=== PATIENT | female | born 1965 | race Hispanic/Latino ===

== ENCOUNTER 2020-05-01 08:06 | Day surgery (SDC) | payer OTHER ==
--- NOTE | 2020-04-30 17:48 | NUR ---
PER PT, STATES SHE WAS INSTRUCTED BY DR. CERON'S OFFICE TO STOP WARFARIN 5 DAYS PRIOR. PT STOPPED WARFARIN 04/27/2020. PT WAS INSTRUCTED TO CONTINUE LOVENOX INJECTIONS BID DAILY SCHEDULED THEN MONDAY 04/30 AND 05/01 ONCE DAILY IN AM PRIOR TO PROCEDURE. PT INSTRUCTED TO BRING INSTRUCTIONS FORM FROM GI OFFICE DAY OF PROCEDURE. UNABLE TO CLARIFY ORDERS WITH DR. CERON'S OFFICE, PRE-OP AFTER 5 PM, OFFICE CLOSED.
[~2020-05-01] VITALS: Ht 162.6 cm; Wt 83.2 kg
[~2020-05-01 08:06] MED LIST: ATOR40TA71 PO; ENOX80DI8 SQ; FLUO40CA49 PO; LEVO25TA54 PO; LOSA50TA64 PO; METF-445 PO; SODIUM CHLORIDE 0.9% 1000ML 1,000 ML IV ONE
[2020-05-01 08:30] VITALS: BP 134/70
[2020-05-01 09:16] LABS: INR 1.25 (0.85-1.15); PROTHROMBIN TIME 13.4 SEC (9.6-11.6)
[2020-05-01] MEDS ORDERED: WARF6TAB49 PO (09:34)
[2020-05-01] MEDS ORDERED: MIDAZOLAM HCL 1 MG/ML 2ML VIAL ONE (10:34)
[2020-05-01] MEDS ORDERED: PROPOFOL 10 MG/ML 20ML VIAL IV ONE (10:34)
[2020-05-01 10:42] VITALS: BP 120/68
[2020-05-01 10:47] VITALS: BP 124/62
[2020-05-01 10:54] VITALS: BP 124/75
[2020-05-01 10:59] VITALS: BP 135/65
[2020-05-02] MEDS ORDERED: ENOX80DI8 SQ (10:35)
== END 2020-05-01 11:21 | disposition home or self-care (01) ==
LOC: ENDO 08:06 → DAH 08:06 → ENDO 11:21
PROVIDERS: ATTEND Internal Medicine
DX: D64.9 Anemia, unspecified (principal); I10 Essential (primary) hypertension; E78.5 Hyperlipidemia, unspecified; N20.0 Calculus of kidney; E11.9 Type 2 diabetes mellitus without complications; Z95.1 Presence of aortocoronary bypass graft; Z90.49 Acquired absence of other specified parts of digestive tract; F41.9 Anxiety disorder, unspecified; F32.9 Major depressive disorder, single episode, unspecified; M19.90 Unspecified osteoarthritis, unspecified site; Z79.01 Long term (current) use of anticoagulants; Z79.84 Long term (current) use of oral hypoglycemic drugs; Z79.899 Other long term (current) drug therapy; I35.8 Other nonrheumatic aortic valve disorders; Z20.828 Contact with and (suspected) exposure to other viral communicable diseases
CPT/HCPCS: 36415; 45378; 82948 ×2; 85610; A4215; A4221; A4222; A4223; A4606; A4620; A4657; A4663; C9803; J2250; J2704; J7030; U0003; G0121

== ENCOUNTER 2020-05-03 10:46 | Day surgery (SDC) | payer OTHER ==
[~2020-05-03] VITALS: Ht 165.1 cm; Wt 79.8 kg
[~2020-05-03 10:46] MED LIST changes: -SODIUM CHLORIDE 0.9% 1000ML 1,000 ML IV ONE
[2020-05-03] MEDS ORDERED: PROPOFOL 10 MG/ML 20ML VIAL IV ONE (11:31)
[2020-05-03] MEDS ORDERED: LIDOCAINE HCL 1% 20 ML VIAL ONE (11:32)
[2020-05-03 11:45] LABS: INR 1.04 (0.85-1.15); PROTHROMBIN TIME 11.2 SEC (9.6-11.6)
[2020-05-03 11:54] VITALS: BP 139/70
[2020-05-03 11:59] VITALS: BP 129/70
[2020-05-03 12:04] VITALS: BP 137/78
[2020-05-03 12:09] VITALS: BP 146/81
[2020-05-03 12:14] VITALS: BP 142/80
--- NOTE | 2020-05-03 12:33 | NUR ---
Advised patient of new orders for colonoscopy gia 05/04/20, patient refused and [place] was notified, pt to follow up on May 08 at GI clinic, discharge instructions given no concerns at the moment.
== END 2020-05-03 12:22 | disposition home or self-care (01) ==
LOC: DAH 10:46
PROVIDERS: ATTEND Internal Medicine
DX: D64.9 Anemia, unspecified (principal); I10 Essential (primary) hypertension; E11.9 Type 2 diabetes mellitus without complications; M19.90 Unspecified osteoarthritis, unspecified site; F41.9 Anxiety disorder, unspecified; F32.9 Major depressive disorder, single episode, unspecified; I35.8 Other nonrheumatic aortic valve disorders; Z90.49 Acquired absence of other specified parts of digestive tract; Z79.84 Long term (current) use of oral hypoglycemic drugs; Z98.890 Other specified postprocedural states; Z79.01 Long term (current) use of anticoagulants; Z87.442 Personal history of urinary calculi; Z79.899 Other long term (current) drug therapy
CPT/HCPCS: 36415; 45378; 82948 ×2; 85610; A4215; A4221; A4222; A4223; A4606; A4663; J2704

== ENCOUNTER 2020-05-22 06:25 | Day surgery (SDC) | payer OTHER ==
[2020-05-22] VITALS (8 sets, daily range): BP systolic 103–165; BP diastolic 53–74
[~2020-05-22] VITALS: Ht 165.1 cm; Wt 83.9 kg
[~2020-05-22 06:25] MED LIST changes: +SODIUM CHLORIDE 0.9% 1000ML 1,000 ML IV ONE
[2020-05-22] MEDS ORDERED: PROPOFOL 10 MG/ML 20ML VIAL IV ONE (08:26)
[2020-05-22] MEDS ORDERED: MIDAZOLAM HCL 1 MG/ML 2ML VIAL ONE (08:26)
--- NOTE | 2020-05-22 08:50 | NUR ---
Pt received Pt received from GI lab via stretcher accompanied by ENEIDA Enriquez. Pt awake but drowsy. No s/s of complaints nor distress. Has o2 via face mask at 10L/min. Pt appears comfortable. Will continue to monitor.
--- NOTE | 2020-05-22 09:30 | NUR ---
D/C Pt prepared for transfer. Verbal instructions and f/u appointment information was given to waldemar. Written instructions and f/u appt was given to pt also. Pt [id number]. Pt was then taken to private vehicle via w/c with waldemar awaiting.
== END 2020-05-22 09:40 ==
LOC: ENDO 06:25 → DAH 06:25 → ENDO 09:40
PROVIDERS: ATTEND Internal Medicine Gastroenterology
DX: D50.9 Iron deficiency anemia, unspecified (principal); K63.5 Polyp of colon; K64.0 First degree hemorrhoids; K31.89 Other diseases of stomach and duodenum; Z20.828 Contact with and (suspected) exposure to other viral communicable diseases; I10 Essential (primary) hypertension; E11.9 Type 2 diabetes mellitus without complications; K59.00 Constipation, unspecified; I35.8 Other nonrheumatic aortic valve disorders; Z79.01 Long term (current) use of anticoagulants; F41.9 Anxiety disorder, unspecified; F32.9 Major depressive disorder, single episode, unspecified; E78.5 Hyperlipidemia, unspecified; Z79.899 Other long term (current) drug therapy
CPT/HCPCS: 36415; 43239; 45380; 82948 ×2; A4215; A4221; A4222; A4223; A4606; A4620; A4657 ×2; A4663; C9803; J2250; J2704; J7030; U0003

== ENCOUNTER → 2022-09-16 | Outpatient (CLI) | payer OTHER, MEDICARE ==
[~2022-09-16] MED LIST changes: -ENOX80DI8 SQ; -SODIUM CHLORIDE 0.9% 1000ML 1,000 ML IV ONE
[2022-09-16 12:01] LABS: ALBUMIN 3.9 g/dL (3.5-5.0); CREATININE 0.9 mg/dL (0.5-1.5); POTASSIUM 4.2 mmol/L (3.5-5.1); TOTAL PROTEIN, SERUM 7.7 g/dL (6.0-8.3)
== END | disposition home or self-care (01) ==
LOC: LAB 11:03
PROVIDERS: ATTEND Physician Assistant Medical
DX: R93.3 Abnormal findings on diagnostic imaging of other parts of digestive tract (principal)
CPT/HCPCS: 36415; 80053

== ENCOUNTER 2023-09-12 17:43 | Emergency (ER) | payer MEDICARE ==
[~2023-09-12] VITALS: Ht 165.1 cm; Wt 74.8 kg
[2023-09-12] MEDS ORDERED: CEPH500B PO (20:09)
[2023-09-12] MEDS ORDERED: IBUP-2077 PO (20:09)
[2023-09-12] MEDS: NEOMY SULF/BACITRA/POLYMYXIN B 1 EACH PACKET TP ONE (21:52)
[2023-09-12] MEDS: CEPHALEXIN 500 MG CAPSULE PO ONE (21:52)
[2023-09-12] MEDS: HYDROCODONE/ACETAMINOPHEN 5/325 MG TAB PO ONE (21:58)
[2023-09-12] MEDS: TETANUS/DIPHTHERIA TOXOID [ADULT] 0.5 ML VIAL IM ONE (22:00)
[2023-09-12 22:28] VITALS: BP 124/65; PULSE 68; RESP 17; O2SAT 99
== END 2023-09-12 22:29 | disposition home or self-care (01) ==
LOC: EDH 17:43
DX: S92.311A Displaced fracture of first metatarsal bone, right foot, initial encounter for closed fracture (principal); I10 Essential (primary) hypertension; E11.9 Type 2 diabetes mellitus without complications; E78.00 Pure hypercholesterolemia, unspecified; F32.A Depression, unspecified; Z90.49 Acquired absence of other specified parts of digestive tract; Z90.89 Acquired absence of other organs; Z90.710 Acquired absence of both cervix and uterus; Z79.84 Long term (current) use of oral hypoglycemic drugs; Z79.899 Other long term (current) drug therapy; W01.0XXA Fall on same level from slipping, tripping and stumbling without subsequent striking against object, initial encounter; Y93.89 Activity, other specified; Y92.89 Other specified places as the place of occurrence of the external cause; Y99.8 Other external cause status; Z98.890 Other specified postprocedural states
CPT/HCPCS: 73660; 90471; 90714

== ENCOUNTER → 2024-02-11 | Outpatient (CLI) | payer MEDICARE ==
[~2024-02-11] MED LIST changes: +CEPH500B PO; +IBUP-2077 PO
[2024-02-11 12:32] LABS: ALBUMIN 4.1 g/dL (3.5-5.0); BILIRUBIN,TOTAL 0.5 mg/dL (0.2-1.0); CREATININE 0.8 mg/dL (0.5-1.0); MAGNESIUM 1.9 mg/dL (1.80-2.40); POTASSIUM 3.8 mmol/L (3.5-5.1); TOTAL PROTEIN, SERUM 7.3 g/dL (6.0-8.3)
== END | disposition home or self-care (01) ==
LOC: LAB 09:02
PROVIDERS: ATTEND Internal Medicine Cardiovascular Disease
DX: I25.10 Atherosclerotic heart disease of native coronary artery without angina pectoris (principal); I50.42 Chronic combined systolic (congestive) and diastolic (congestive) heart failure
CPT/HCPCS: 36415; 80053; 80061; 83735

== ENCOUNTER → 2024-04-21 | Outpatient (CLI) | payer MEDICARE | END | disposition home or self-care (01) | LOC: RAH 11:02 | PROVIDERS: ATTEND Radiology Diagnostic Radiology | DX: M54.50 Low back pain, unspecified (principal); M54.9 Dorsalgia, unspecified; R07.81 Pleurodynia | CPT/HCPCS: 71046; 72070; 72100 ==

== ENCOUNTER → 2025-06-07 | Outpatient (CLI) | payer MEDICARE ==
--- NOTE | 2025-06-08 05:32 | HMCIMG ---
EXAM: CR left Wrist, 3 View. CLINICAL HISTORY: LEFT WRIST PAIN COMPARISON: None provided. FINDINGS: BONES: No acute fracture or aggressive appearing osseous lesion. Diffuse osteopenia. JOINTS: No dislocation. The carpal bones demonstrate normal alignment. SOFT TISSUES: The soft tissues are unremarkable. IMPRESSION: No acute osseous abnormality. No acute fracture or dislocation. Diffuse osteopenia. /Jarrell
== END | disposition home or self-care (01) ==
LOC: RAH 14:23
PROVIDERS: ATTEND Radiology Diagnostic Radiology
DX: M85.89 Other specified disorders of bone density and structure, multiple sites (principal); M25.532 Pain in left wrist
CPT/HCPCS: 73110